=== PATIENT | male | born 1965 | race Caucasian/White ===

== ENCOUNTER 2023-10-14 08:00 | Outpatient (CLI) | payer MEDICAID ==
--- NOTE | 2023-10-14 17:44 | XRAY Report ---
PROCEDURE: Shoulder 3 View LT INDICATIONS: LEFT SHOULDER PAIN TECHNIQUE: 3 views of the shoulder were acquired. COMPARISON: None. FINDINGS: There is no evidence for acute fracture or dislocation involving the patient's left shoulder. There i s severe glenohumeral joint degenerative change and mild AC joint degenerative change. Adjacent soft tissues appear within normal limits. IMPRESSION: 1. No evidence for acute osseous abnormality involving the left shoulder. 2. Severe glenohumeral joint degenerative change. 3. Mild AC joint degenerative change. Reviewed by: Connor Dahl MD on 10/14/2023 5:43 PM PST Approved by: Connor Dahl MD on 10/14/2023 5:43 PM PST Station ID: [id number]
== END 2023-10-14 23:59 | disposition home or self-care (01) ==
LOC: DI.WOS 08:00
PROVIDERS: ATTEND Physician Assistant Surgical
DX: M19.012 Primary osteoarthritis, left shoulder (principal)

== ENCOUNTER 2023-11-05 14:45 | Outpatient (CLI) | payer MEDICAID ==
[2023-11-05 18:11] LABS: ALBUMIN 4.6 g/dL (3.2-5.5); ALBUMIN/GLOBULIN RATIO 1.8 (1.0-2.2); BILIRUBIN,TOTAL 0.4 mg/dL (0.2-1.0); CALCIUM 9.7 mg/dL (8.5-10.3); CREATININE 0.7 mg/dL (0.6-1.3); POTASSIUM 4.1 mmol/L (3.5-4.5); TOTAL PROTEIN 7.1 g/dL (6.4-8.9)
== END 2023-11-05 15:00 | disposition home or self-care (01) ==
LOC: LAB.N 14:45
PROVIDERS: ATTEND Family Medicine
DX: B35.1 Tinea unguium (principal)
CPT/HCPCS: 36415; 80053

== ENCOUNTER 2023-11-26 15:22 | Outpatient (CLI) | payer MEDICAID ==
--- NOTE | 2023-11-26 16:28 | Sleep Patient Instructions ---
Sleep Center Visit Summary - Patient Visit Information Reason for Visit: Initial consult for evaluation of sleep disordered breathing and other sleep issues. - Patient Instructions Instructions Attached: Sleep Study Additional Instructions: You will be completing a sleep study, either an in-lab polysomnography (PSG) or home sleep study (HST). You will follow-up in the sleep care office after the sleep study is completed to hear the results and talk about therapy, if needed. You will be called by our office staff to schedule this appointment, but you may contact us with any questions. - Clinic Information Contact: [facility] [address] [place] [address] [email or web address] T: [phone]
--- NOTE | 2023-11-26 16:31 | SLEEP CARE CONSULTATION ---
Information from patient questionnaire entered by Tali Ferreira. I have reviewed and concur with the information entered by Tali Ferreira. This document represents the service I personally performed and the decisions made by me, Chastity Birch ARNP. History of Present Illness Service Date and Time: 11/26/2023 1522 Reason for Visit: New patient Accompanied by: Lisa liao Chief Complaint: reports: Insomnia, Unrefreshed sleep, Excessive daytime sleepiness, Fatigue, Frequent awakenings at night Date of Onset: MOST OF MY LIFE Usual bedtime: 10PM Time it takes to fall asleep: 1-3 hours Snores at night: Yes (told he has snores a little) Observed to quit breathing while asleep: No Sleeps alone due to snoring: No Number of times waking at night: OFTEN, varies 1-4 Reasons for waking at night: reports: Bathroom. denies: Choking, Snoring, Gasping for air Toss, Turn, or Twitch while sleeping: Yes Recalls having dreams: Yes (sometimes) Usually gets out of bed at: 7-8AM Feels refreshed in the morning: No Morning headache: No Sleepy or fatigued during the day: Yes Ever fallen asleep while driving: No Takes day naps: Yes (3-4 days a week; time varies; sometimes he is not sleeping, just resting) Dreams during day naps: Yes Prior sleep studies: No Additional HPI information: I had the pleasure of seeing PHYLLIS ELIZONDO today regarding the possibility of him having a sleep disorder. His current complaints are excessive daytime sleepiness, fatigue, frequent night awakenings, insomnia and unrefreshed sleep. He feels he has issues with getting to sleep. He can take 1-3 hours, sometimes more. He says his mind is very active and he "can't calm down". Once he falls asleep he usually stays asleep but the time varies. He states if he does wake up in the middle of night he has a hard time going back to sleep. He is working with his psychiatrist right now who has been addressing his insomnia issues. He does have short-term memory issues, attention deficit as well as anxiety and depressive issues. 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 Patient is Single and lives in [place]. Have you smoked in the past 12 months: No Alcohol use: Yes Alcohol amount and frequency: 1-2 DRINKS 1-2 BEER DRINKS OCCASSIONALLY Caffeine use: No Caffeine amount and frequency: DECAFFINATED COFFEE Family History Family history of sleep disordered breathing: No Allergies and Home Medications Known drug allergies: Yes ( LISTED) Drug allergies reviewed: Yes Home medication list reviewed: Yes Allergy and home medication list: Home Medications Medication Instructions Recorded Confirmed Last Taken Type ARIPiprazole [Abilify] See Rx Instructions .ROUTE .COMPLEX 11/26/23 11/26/23 Unknown History Acetaminophen [Aphen] See Rx Instructions .ROUTE .COMPLEX 11/26/23 11/26/23 Unknown History Atomoxetine HCl [Strattera] See Rx Instructions .ROUTE .COMPLEX 11/26/23 11/26/23 Unknown History Ibuprofen [Motrin] See Rx Instructions .ROUTE .COMPLEX 11/26/23 11/26/23 Unknown History Sertraline HCl See Rx Instructions .ROUTE .COMPLEX 11/26/23 11/26/23 Unknown History Terbinafine [Lamisil] See Rx Instructions .ROUTE .COMPLEX 11/26/23 11/26/23 Unknown History traZODone [Desyrel] See Rx Instructions .ROUTE .COMPLEX 11/26/23 11/26/23 Unknown History Review of Systems Weight loss over past 5 years: 20 Neurological: reports: fainting or unconsciousness Psychiatric: reports: Attention Deficit Hyperactivity, anxiety, depression Ear/Nose/Throat: reports: nasal congestion, sinus problems. denies: tonsillectomy Endocrine: reports: sluggishness, too hot or cold Musculoskeletal: reports: back pain Immunologic: reports: allergies to food or environment Physical Exam Vital signs obtained and entered by: TALI Celis MA Blood Pressure: 93/63 (LEFT ARM) Cuff size: regular Heart Rate: 89 O2 Saturation: 100 Height: 6 ft Weight: 174 lb Body Mass Index: 23.6 BMI Classification: Normal Neck circumference: 14.5 Mouth and throat: narrow oropharynx Soft palate: long Hard palate: arched Uvula: normal Uvula visualization: 25% Mallampati Class III Tongue: enlarged in size with teeth barrera on lateral edges Tonsils: small Neck: normal w/o lymphadenopathy or thyromegaly Heart: regular rate and rhythm Lungs: clear bilaterally Impression and Plan 1. Suspected Obstructive Sleep Apnea-Hypopnea Syndrome, as suggested by a history of loud and irregular snoring, frequent awakening during the night, unrefreshed sleep, cognitive impairment, and excessive daytime sleepiness. Narrow oropharynx and obesity are common predisposing factors for obstructive sleep apnea-hypopnea syndrome. I recommend proceeding to polysomnography to confirm the diagnosis and to assess severity. If the patient has significant sleep disordered breathing, a manual CPAP titration study will also be performed to find the optimal treatment pressure. I informed the patient of what the sleep studies involve and after some discussion, obtained agreement to proceed. The pathophysiology of obstructive sleep apnea-hypopnea syndrome was discussed with the patient and health risks of cardiovascular and cerebrovascular disease if not treated. Risks of drowsy driving discussed in detail and patient advised to avoid long distance driving and to pullman car clerk at the first sign of drowsiness. Patient agreed to plan. * Schedule polysomnography. * Avoid long distance driving or driving when feeling sleepy. * Avoid alcohol, sedative and muscle relaxant around bedtime. * Review instructions provided by trained office staff on how to prepare for the sleep study. * Return for follow-up after sleep study completed. Visit Type: In Office Time Spent with Patient (minutes): 36 Provider Statement: I spent 100% of the Face to Face Visit with the patient with greater than 50% spent counseling the patient and coordination of care.
[2023-11-27 16:18] VITALS: BP 93/63; O2SAT 100
== END 2023-11-26 15:23 | disposition home or self-care (01) ==
LOC: SC 15:22
PROVIDERS: ATTEND Nurse Practitioner Family
DX: G47.10 Hypersomnia, unspecified (principal); R53.83 Other fatigue; G47.8 Other sleep disorders; R06.83 Snoring; R41.89 Other symptoms and signs involving cognitive functions and awareness; F32.A Depression, unspecified
CPT/HCPCS: 99203; 99212

== ENCOUNTER 2023-11-27 08:00 | Outpatient (CLI) | payer MEDICAID ==
--- NOTE | 2023-11-27 15:32 | XRAY Report ---
PROCEDURE: Hand 3 View RT INDICATIONS: RIGHT HAND CYST TECHNIQUE: 3 views of the hand(s) acquired. COMPARISON: None. FINDINGS: Bones: No fractures or dislocations. No suspicious bony lesions. Soft tissues: No suspicious soft tissue calcifications or masses. A subtle soft tissue radiopacity is visualized in the area of interest. IMPRESSION: No acute bony abnormality. Subtle soft tissue abnormality where indicated. If further characterization is warranted, ultrasound or MRI could be used. Reviewed by: Tonie Carlos MD on 11/27/2023 3:30 PM PST Approved by: Tonie Carlos MD on 11/27/2023 3:30 PM PST Station ID: [id number]
== END 2023-11-27 23:59 | disposition home or self-care (01) ==
LOC: DI.WOS 08:00
PROVIDERS: ATTEND Orthopaedic Surgery
DX: L72.3 Sebaceous cyst (principal)

== ENCOUNTER 2023-12-07 19:37 | Outpatient (CLI) | payer MEDICAID | END 2023-12-07 19:38 | disposition home or self-care (01) | LOC: SC 19:37 | PROVIDERS: ATTEND Nurse Practitioner Family | DX: G47.33 Obstructive sleep apnea (adult) (pediatric) (principal) | CPT/HCPCS: 95810 ==

== ENCOUNTER 2023-12-17 09:35 | Outpatient (CLI) | payer MEDICAID ==
--- NOTE | 2023-12-17 10:01 | Sleep Patient Instructions ---
Sleep Center Visit Summary - Patient Visit Information Reason for Visit: Sleep study follow-up - Patient Instructions Instructions Attached: CPAP Additional Instructions: You will be completing a titration sleep study in our sleep lab where you will be sleeping with the CPAP machine on and we will be adjusting your pressures to find your optimal pressure settings. Once we have your results back, we will call you and schedule a follow up to go over the results. You will be called by our office staff to schedule your follow up, but you may contact us with any questions or issue as needed. - Clinic Information Contact: [facility] [address] [place] [address] [email or web address] T: [phone]
--- NOTE | 2023-12-17 10:07 | SLEEP CARE CONSULTATION ---
Information from patient questionnaire entered by Tali Ferreira. I have reviewed and concur with the information entered by Tali Ferreira. This document represents the service I personally performed and the decisions made by , Chastity Birch ARNP. History of Present Illness Service Date and Time: 12/17/2023 0935 Accompanied by: Lisa liang Initial [place] Sleepiness Scale score: 9 (11/26/23) Current [place] Sleepiness Scale score: 10 (12/17/23) Additional HPI information: PHYLLIS ELIZONDO returns for follow up and results of the recently performed polysomnography. The sleep study showed severe obstructive sleep apnea with an average AHI of 50.7 and ev oxygen saturation of 86%. I explained the pathophysiology behind obstructive sleep apnea. We then spent quite a bit of time discussing different treatment options. For mild obstructive sleep apnea, surgery and oral appliance are alternatives to nasal CPAP therapy but in moderate or severe cases, nasal CPAP is the most effective and reliable treatment. After some discussion, the patient opted to go with the nasal CPAP therapy. A manual titration study will be ordered if unable to find optimal pressure with office adjustments. Patient counseled not drink alcohol less than 4 hours before bedtime as it can increase snoring and apnea. Patient was cautioned about risks of drowsy driving until sleepiness symptoms resolve. Patient denies drowsy driving. Sleep Study - Results Type of Sleep Study: Polysomnography (COMPLETED 12/07/23) Prior sleep studies: No Polysomnography/Home Sleep Study results: IMPRESSION: The quality of the study is good. The patient had reduced sleep efficiency due to a prolonged awakening in the second half of the night. The sleep architecture was abnormal for sleep fragmentation and lack of REM and slow wave sleep (N3). Respiratory monitoring showed severe obstructive sleep apnea-hypopnea (AHI = 50.7) associated with frequent arousals, oxyhemoglobin desaturation and mild hypoxia (ev oxygen saturation of 86%). The patient only slept supine during this study (supine AHI = 50.7; non- supine = 0.00). Snore was moderate = in intensity. There was no significant periodic leg movement of sleep. Cardiac rhythm was normal sinus rhythm without significant arrhythmia. No abnormal behavior (parasomnia) observed during the night. Allergies and Home Medications Known drug allergies: Yes (as listed) Drug allergies reviewed: Yes Home medication list reviewed: Yes (Meloxicam 15 mg tab for shoulder pain) Allergy and home medication list: Allergies codeine Allergy (Verified 12/16/23 13:09) iodine Allergy (Verified 12/16/23 13:09) oxycodone Allergy (Verified 12/16/23 13:09) shellfish derived Allergy (Verified 12/16/23 13:09) Review of Systems Review of systems same as previous: Yes (NO CHANGE) Physical Exam Vital signs obtained and entered by: TALI Celis MA Blood Pressure: 101/68 (LEFT ARM) Cuff size: regular Heart Rate: 86 O2 Saturation: 100 Height: 6 ft Weight: 162 lb 9.6 oz Weight change since last visit: 12 lb loss Body Mass Index: 22.0 BMI Classification: Normal Impression and Plan 1. Obstructive Sleep Apnea-Hypopnea Syndrome, severe, with lowest oxygen saturation of 86%. Obviously this is the cause of the patients symptoms of unrefreshed sleep, and excessive daytime sleepiness. Positive pressure therapy could benefit anxiety, depression, mood disorder and attention deficit. As mentioned above, the patient will be started on nasal autoCPAP therapy. A manual titration study will be completed to find optimal treatment pressure with office adjustments. Compliance guidelines also reviewed. Once we have authorization, we will move forward with a titration study and then see him in follow-up to set him up with a PAP device. He voiced understanding and agreement with this plan of care. 2. Hypoxemia, mild, with a ev oxygen saturation of 86% and 1.4 minutes spent under 90%. The baseline oxygen saturation was normal with an average oxygen saturation of 94%. * Titration study. * Avoid alcohol consumption near bedtime. * Avoid supine sleep until using CPAP. * Return after after titration study. Plan: Titration study Visit Type: In Office Time Spent with Patient (minutes): 24 Provider Statement: I spent 100% of the Face to Face Visit with the patient with greater than 50% spent counseling the patient and coordination of care.
[2023-12-17 10:14] VITALS: BP 101/68; O2SAT 100
== END 2023-12-17 09:36 | disposition home or self-care (01) ==
LOC: SC 09:35
PROVIDERS: ATTEND Nurse Practitioner Family
DX: G47.33 Obstructive sleep apnea (adult) (pediatric) (principal); R09.02 Hypoxemia
CPT/HCPCS: 99212; 99213

== ENCOUNTER 2024-01-28 19:49 | Outpatient (CLI) | payer MEDICAID | END 2024-01-28 19:50 | disposition home or self-care (01) | LOC: SC 19:49 | PROVIDERS: ATTEND Nurse Practitioner Family | DX: G47.33 Obstructive sleep apnea (adult) (pediatric) (principal) | CPT/HCPCS: 95811 ==

== ENCOUNTER 2024-02-25 09:29 | Outpatient (CLI) | payer MEDICAID ==
--- NOTE | 2024-02-25 10:09 | Sleep Patient Instructions ---
Sleep Center Visit Summary - Patient Visit Information Reason for Visit: Titration study follow-up - Patient Instructions Instructions Attached: CPAP Additional Instructions: You are being started on CPAP therapy with pressure setting at 5-10 cmH2O. You will need to call the sleep care office to set up your follow up once you have your CPAP machine to check compliance and response to therapy at that time. You may call the office with any concerns about pressure feeling too low or too much for adjustment, if needed. You should contact DME supplier for any questions or concerns about mask or equipment. Please call office to schedule a follow up appointment in the sleep care office one month after obtaining new device. - Clinic Information Contact: [facility] [address] [place] [address] [email or web address] T: [phone]
--- NOTE | 2024-02-25 10:15 | SLEEP CARE CONSULTATION ---
Information from patient questionnaire entered by Tali Ferreira. I have reviewed and concur with the information entered by Tali Ferreira. This document represents the service I personally performed and the decisions made by , Chastity Birch ARNP. History of Present Illness Service Date and Time: 02/25/2024 0929 Accompanied by: Roxanne Initial [place] Sleepiness Scale score: 9 (11/26/23) Current [place] Sleepiness Scale score: 8 Additional HPI information: PHYLLIS ELIZONDO returns for follow up of the sleep study with Lisa ([id number]) with a manual CPAP titration study performed on 01/28/2024. Pre vious study done on 12/07/2023 showed severe obstructive sleep apnea with AHI 50.7. The patient was informed of the following polysomnography findings: CPAP was initiated at 6 cmH2O and titrated up to CPAP at 14 cmH2O. CPAP at 10 cmH2O appeared to be optimal (AHI of 1.8 per hour on the pressure). There was supine REM sleep on the pressure. Oxygen saturation was normal throughout the night. Higher CPAP settings were associated with more residual respiratory events. The patient appeared to have tolerated positive airway pressure therapy fairly well. I explained how CPAP machine works and what to expect when using the machine. Using CPAP every night in order to get used to it was emphasized. Patient advised to put CPAP mask on before getting into bed so as not to fall asleep without CPAP. To assist acclimation to CPAP use, it could also be used for a short time during day while reading or watching TV. The patient was instructed to call the CPAP supplier to discuss any mechanical problem that may occur. If the mask given is uncomfortable or is difficult to keep on through the night even with adjustment, contact the CPAP supplier as many will replace with another mask style if notified before 30 days. If snoring or perceives is not getting enough air or too much air from the machine, notify this office. Patient was cautioned about risks of drowsy driving until sleepiness symptoms resolve. Sleep Study - Results Type of Sleep Study: Polysomnography (COMPLETED 12/07/23 TITRATION 01/28/24) Prior sleep studies: No Polysomnography/Home Sleep Study results: IMPRESSION: The quality of the study is good. CPAP was initiated at 6 cmH2O and titrated up to CPAP at 14 cmH2O. CPAP at 10 cmH2O appeared to be optimal (AHI of 1.8 per hour on the pressure). There was supine REM sleep on the pressure. Oxygen saturation was normal throughout the night. Higher CPAP settings were associated with more residual respiratory events. The patient appeared to have tolerated positive airway pressure therapy fairly well. The patients sleep efficiency was reduced due to two prolonged awakenings during the night. The sleep architecture was abnormal for sleep fragmentation and reduced amount of time spent in REM and slow wave sleep (N3). There was no significant periodic leg movement of sleep. Cardiac rhythm was normal sinus rhythm without significant arrhythmia. No abnormal behavior (parasomnia) observed during the night. Allergies and Home Medications Known drug allergies: Yes (as listed) Drug allergies reviewed: Yes Home medication list reviewed: Yes (Atomoxetine now 80 mg, trazadone now 75 mg; stopped terbinafine) Allergy and home medication list: Allergies codeine Allergy (Verified 02/23/24 09:02) iodine Allergy (Verified 02/23/24 09:02) oxycodone Allergy (Verified 02/23/24 09:02) shellfish derived Allergy (Verified 02/23/24 09:02) Review of Systems Review of systems same as previous: Yes (no changes) Physical Exam Vital signs obtained and entered by: CHASTITY KAN-Lalita Blood Pressure: 88/58 Cuff size: regular (left arm) Heart Rate: 69 O2 Saturation: 100 Height: 6 ft Weight: 160 lb Body Mass Index: 21.7 BMI Classification: Normal Impression and Plan 1. Obstructive Sleep Apnea-Hypopnea Syndrome, severe. Patient returns to office after titration study completed January 28, 2024. He has optimal pressure appeared to be about 10 cm H2O, pressure range between 5-10 cm H2O was also recommended. Patient advised that positive pressure therapy could benefit anxiety, depression, mood disorder and attention deficit. The patient will be started on nasal autoCPAP therapy with pressure set at 5-10 cmH2O. Compliance guidelines also reviewed. A copy of compliance guidelines will be given for reference at check out. * Nasal auto CPAP therapy, pressure at 5-10 cm H2O. * Attempt to lose weight. * Avoid alcohol consumption near bedtime. * Avoid supine sleep until using CPAP. * The patient is again cautioned about driving until sleepiness completely resolves. * Return one month after CPAP obtained. I will assess response to therapy and compliance at that time. Prescriptions: Auto CPAP Plan: CPAP setup and compliance followup Visit Type: In Office Time Spent with Patient (minutes): 28 Provider Statement: I spent 100% of the Face to Face Visit with the patient with greater than 50% spent counseling the patient and coordination of care.
[2024-02-25 10:17] VITALS: BP 88/58; O2SAT 100
== END 2024-02-25 09:30 | disposition home or self-care (01) ==
LOC: SC 09:29
PROVIDERS: ATTEND Nurse Practitioner Family
DX: G47.33 Obstructive sleep apnea (adult) (pediatric) (principal)
CPT/HCPCS: 99212; 99213

== ENCOUNTER 2024-03-12 14:10 | Outpatient (CLI) | payer MEDICAID ==
--- NOTE | 2024-03-12 16:21 | XRAY Report ---
PROCEDURE: Lumbar Spine 2-3V INDICATIONS: LOW BACK PAIN TECHNIQUE: 2 views of the lumbar spine were acquired. COMPARISON: None. FINDINGS: Bones: 5 [id number]-mdx-urculib vertebrae are present. Mild levocurvature of the lumbar spine. Straightenin g of the normal lumbar lordosis. There are multilevel degenerative changes of the lumbar spine with f acet arthropathy and disc height loss with degenerative endplate changes and marginal spurring. This is most pronounced at L5-S1. No vertebral body compression fractures. No suspicious bony lesions. Soft tissues: Overlying bowel gas pattern is normal. No suspicious soft tissue calcifications. Athe rosclerotic vascular calcifications. IMPRESSION: Moderate multilevel degenerative changes of the lumbar spine. Reviewed by: Juan Gautam MD on 03/12/2024 4:20 PM PDT Approved by: Juan Gautam MD on 03/12/2024 4:20 PM PDT Station ID: [id number]
== END 2024-03-12 14:11 | disposition home or self-care (01) ==
LOC: DI 14:10
PROVIDERS: ATTEND Nurse Practitioner
DX: M47.816 Spondylosis without myelopathy or radiculopathy, lumbar region (principal); M47.817 Spondylosis without myelopathy or radiculopathy, lumbosacral region

== ENCOUNTER 2024-05-05 13:45 | Outpatient (CLI) | payer MEDICAID ==
--- NOTE | 2024-05-05 14:49 | Sleep Patient Instructions ---
Sleep Center Visit Summary - Patient Visit Information Reason for Visit: First compliance follow-up - Patient Instructions Additional Instructions: You were here for follow up of CPAP therapy. You will be continued on CPAP therapy with pressure at 10-11 cmH2O. Please let us know if the pressure change is uncomfortable and we can make further adjustments of the pressure. You should follow up with sleep care in 1-2 months. You may contact us sooner for any questions or concerns. - Clinic Information Contact: [facility] [address] [place] [address] [email or web address] T: [phone]
--- NOTE | 2024-05-05 14:56 | SLEEP CARE CONSULTATION ---
Information from patient questionnaire entered by Tali Fererira. I have reviewed and concur with the information entered by Tali Ferreira. This document represents the service I personally performed and the decisions made by me, Chastity Birch ARNP. History of Present Illness Service Date and Time: 05/05/2024 1345 Previous diagnosis: Severe, Obstructive Sleep Apnea-Hypopnea Syndrome AHI: 50.7 (on 12/07/2023) Reason for follow up: first compliance Accompanied by: mary Gonzalez Equipment type: CPAP (RESMED Airsense 11, s/u 02/2024) Equipment obtained from: Other ([facility]; getting supplies) Mask style: Full face Mask brand: [employer] (Toni Full) Backup mask available: No (will keep old mask when replaced) Last cushion change: over a month Prior sleep studies: No Type of Sleep Study: Polysomnography (COMPLETED 12/07/23 TITRATION 01/28/24) HPI additional information: PHYLLIS ELIZONDO was diagnosed to have severe, AHI 50.7, obstructive sleep apnea- hypopnea syndrome and returned accompanied by his sister in law, Lisa, today for CPAP therapy first compliance follow-up. Sleep Study - Results Type of Sleep Study: Polysomnography (COMPLETED 12/07/23 TITRATION 01/28/24) Prior sleep studies: No CPAP Compliance Data - Data Reviewed with Patient Average duration of nightly device use: 7 HRS 34 MINS Compliance rate %: 70 (03/28/24-04/26/24; 22/30 days used) Current pressure setting (cmH2O): 5-10 (avg 9.7, max 9.9) Average residual AHI: 19.6 (unknown 2.5) Central apnea: 5.8 Obstructive apnea: 7.2 Hypopnea: 4.1 Average large leak: 4 L/min Subjective Missed days of use due to: reports: mask issues Patient concerns: reports: other (mask fit, want to try a bigger size). denies: aerophagia, mask discomfort, air blowing in eyes, mask leak noise, condensation in mask/hose, nasal congestion, dry mouth, nose, throat, epistaxis Observed to snore while using device: No Current pressure setting perceived as: comfortable On therapy, patient: denies: drowsiness while driving Initial [place] Sleepiness Scale score: 9 (11/26/23) Current Cam[place] Sleepiness Scale score: 7 (05/05/24) Allergies and Home Medications Known drug allergies: Yes (as listed) Drug allergies reviewed: Yes Home medication list reviewed: Yes (no changes) Allergy and home medication list: Allergies codeine Allergy (Verified 05/03/24 11:23) iodine Allergy (Verified 05/03/24 11:23) oxycodone Allergy (Verified 05/03/24 11:23) shellfish derived Allergy (Verified 05/03/24 11:23) Review of Systems Review of systems same as previous: Yes (NO CHANGE) Physical Exam Vital signs obtained and entered by: TALI Celis MA Blood Pressure: 101/70 (RIGHT ARM) Cuff size: regular Heart Rate: 76 O2 Saturation: 99 Height: 6 ft Weight: 157 lb Body Mass Index: 21.2 BMI Classification: Normal Impression and Plan 1. Obstructive Sleep Apnea-Hypopnea Syndrome, severe, with good treatment compliance and fair apnea control with elevated residual AHI. On CPAP therapy, the patient is still trying to see if it is improving his sleep. His Camino improved from 08/06 to 06/09. He changed his mask and he likes the [employer] Toni full face mask better but he gets some mask leaking when on his side. He does have some facial hair and I advised him to trim a little encourage a better seal of the mask. He can also try a CPAP pillow to reduce dislodgment of the mask. The patients pressure will be changed to autoCPAP 10-11 cmH20 for elevation of residual AHI. Patient advised to contact me if pressure change is uncomfortable so that it can be adjusted. Goals for apnea control discussed. Patient's apnea severity and rationale for treatment to reduce apnea, improve sleep quality and reduce cardiovascular and cerebrovascular events was reviewed. I also reviewed the benefit of consistent device use of CPAP for depression/anxiety, mood diso rder and attention deficit. * Change auto CPAP pressure to 10-11 cmH2O * Notify me if snoring with mask or feeling that the pressure is too much or too little * Attempt to lose weight * Call this office if any problems using CPAP * Return for follow up in 1-2 months, or sooner if concerns arise Counseling Topics: Spare mask Follow up with Sleep Care in: 1-2 months Visit Type: In Office Time Spent with Patient (minutes): 34 Provider Statement: I spent 100% of the Face to Face Visit with the patient with greater than 50% spent counseling the patient and coordination of care.
[2024-05-05 14:57] VITALS: BP 101/70; O2SAT 99
== END 2024-05-05 13:46 | disposition home or self-care (01) ==
LOC: SC 13:45
PROVIDERS: ATTEND Nurse Practitioner Family
DX: G47.33 Obstructive sleep apnea (adult) (pediatric) (principal)
CPT/HCPCS: 99212; 99214

== ENCOUNTER 2024-06-11 18:10 | Outpatient (CLI) | payer MEDICAID ==
--- NOTE | 2024-06-12 14:15 | XRAY Report ---
PROCEDURE: Hand 1-2V RT INDICATIONS: DIGITAL MUCOUS OF CYST OF RIGHT HAND TECHNIQUE: 3 views of the hand(s) acquired. COMPARISON: None. FINDINGS: Bones: No fractures or dislocations. No suspicious bony lesions. Soft tissues: No suspicious soft tissue calcifications. Questionable increased attenuation overlying the soft tissues adjacent to the fifth metacarpal head. IMPRESSION: Nonspecific increased attenuation overlying the fifth metacarpal head possibly within the soft tissue s. Underlying mass cannot be excluded. X-ray poorly characterize and identifies soft tissue masses an d if concern persists, MRI is recommended. Reviewed by: Debra Roth MD on 06/12/2024 2:14 PM PDT Approved by: Debra Roth MD on 06/12/2024 2:14 PM PDT Station ID: [id number]
== END 2024-06-11 18:11 | disposition home or self-care (01) ==
LOC: DI 18:10
PROVIDERS: ATTEND Physician Assistant
DX: M67.441 Ganglion, right hand (principal)

== ENCOUNTER 2024-06-24 11:09 | Outpatient (CLI) | payer MEDICAID ==
--- NOTE | 2024-06-24 12:15 | Sleep Patient Instructions ---
Sleep Center Visit Summary - Patient Visit Information Reason for Visit: 6-week follow-up for Pap therapy - Patient Instructions Additional Instructions: You were here for follow up of CPAP therapy. You will be continued on CPAP therapy with pressure at 10-11 cmH2O. I have written an order to have the machine service to check on issue with air blowing too hard. You should follow up with sleep care in 1-2 months. You may contact us sooner for any questions or concerns. - Clinic Information Contact: [facility] [address] [place] [address] [email or web address] T: [phone]
--- NOTE | 2024-06-24 12:21 | SLEEP CARE CONSULTATION ---
Information from patient questionnaire entered by Tali Ferreira. I have reviewed and concur with the information entered by Tali Ferreira. This document represents the service I personally performed and the decisions made by , Chastity Birch ARNP. History of Present Illness Service Date and Time: 06/24/2024 1109 Previous diagnosis: Severe, Obstructive Sleep Apnea-Hypopnea Syndrome AHI: 50.7 (on 12/07/2023) Reason for follow up: other (6 WEEK F/U) Accompanied by: mary Gonzalez Equipment type: CPAP (RESMED Airsense 11, s/u 02/2024) Equipment obtained from: Other ([facility]; getting supplies) Mask style: Full face Mask brand: [employer] (Toni Full) Backup mask available: No Last cushion change: 3 months Prior sleep studies: No Type of Sleep Study: Polysomnography (COMPLETED 12/07/23 TITRATION 01/28/24) HPI additional information: PHYLLIS ELIZONDO was diagnosed to have severe, AHI 50.7, obstructive sleep apnea- hypopnea syndrome and returned today with sister in law Gonzalez for CPAP therapy six week follow-up. Sleep Study - Results Type of Sleep Study: Polysomnography (COMPLETED 12/07/23 TITRATION 01/28/24) Prior sleep studies: No CPAP Compliance Data - Data Reviewed with Patient Average duration of nightly device use: 7 HRS 54 MINS Compliance rate %: 82 (05/09/24-06/21/24; 37/44 days used) Current pressure setting (cmH2O): 10-11 Average residual AHI: 17 (unknown 1.2) Central apnea: 4.6 Obstructive apnea: 7.1 Hypopnea: 4 Average large leak: 5.3 L/min Subjective Missed days of use due to: reports: mask issues, other (machine blowing "hard" and he was unable to use) Patient concerns: reports: aerophagia, other (MACHINE BLOWING AIR/NOT USABLE). denies: mask discomfort, air blowing in eyes, mask leak noise, condensation in mask/hose, nasal congestion, dry mouth, nose, throat, epistaxis Observed to snore while using device: No Current pressure setting perceived as: too high On therapy, patient: reports: other (not feeling improvement of sleep or restfulness--has to "rest" after using CPAP in the morning) Initial [place] Sleepiness Scale score: 9 (11/26/23) Current [place] Sleepiness Scale score: 4 (06/24/24) Allergies and Home Medications Known drug allergies: Yes (as listed) Drug allergies reviewed: Yes Home medication list reviewed: Yes (Trazodone increased to 100 mg) Allergy and home medication list: Allergies codeine Allergy (Verified 06/24/24 11:20) iodine Allergy (Verified 06/24/24 11:20) oxycodone Allergy (Verified 06/24/24 11:20) shellfish derived Allergy (Verified 06/24/24 11:20) Review of Systems Review of systems same as previous: No (INFLAMED RIGHT PINKIE KNUCKLE, ULCER UPPER RIGHT GUM) Physical Exam Vital signs obtained and entered by: TALI Celis MA Blood Pressure: 128/78 (LEFT ARM) Cuff size: regular Heart Rate: 71 O2 Saturation: 100 Height: 6 ft Weight: 161 lb 9.6 oz Body Mass Index: 21.9 BMI Classification: Normal Impression and Plan 1. Obstructive Sleep Apnea-Hypopnea Syndrome, severe, with good treatment compliance and good apnea control. He does not feel like his sleep is better or he is more rested overall. He says that his machine is having an issue where the pressure comes on so high when he puts the mask on that he says the machine is "unusable". He has not been able to use the machine for the last 4-5 nights. I had him plug the machine in. The pressure started at 4 cmH2O with ramping and he said it did not feel so high like he felt at home. He is using the ramp feature. I am unsure what the problem may be but think we should have the machine serviced to check for any problems that could cause the pressure to feel so very high, as he describes. His sister in law says he tells her of burping in the morning and excess gas. He may be experiencing aerophagia. He does not state how problematic it is. He does have improvement of his sleep apnea with current pressure setting although it is mildly ineffective. He does not feel he could tolerate more pressure. He also has ordered a larger cushion size of mask thinking it would be more comfortable. I checked the mask fit and it was fine with the medium cushion. He says he has not changed the cushion out since he started using his CPAP and his average large leak is high. I advised him to change out the mask cushion to reduce mask leaks. He voiced understanding and agreement. Patient's apnea severity and rationale for treatment to reduce apnea, improve sleep quality and reduce cardiovascular and cerebrovascular events was reviewed. I also reviewed the benefit of consistent device use of CPAP for depression/anxiety, mood disorder, attention deficit. * Continue auto CPAP pressure at 10-11 cmH2O * Service Machine * Notify me if snoring with mask or feeling that the pressure is too much or too little * Attempt to lose weight * Call this office if any problems using CPAP * Return for follow up in 1-2 months, or sooner if concerns arise Prescriptions: Other (service machine) Follow up with Sleep Care in: 1-2 months Visit Type: In Office Time Spent with Patient (minutes): 29 Provider Statement: I spent 100% of the Face to Face Visit with the patient with greater than 50% spent counseling the patient and coordination of care.
[2024-06-24 12:28] VITALS: BP 128/78; O2SAT 100
== END 2024-06-24 11:10 | disposition home or self-care (01) ==
LOC: SC 11:09
PROVIDERS: ATTEND Nurse Practitioner Family
DX: G47.33 Obstructive sleep apnea (adult) (pediatric) (principal)
CPT/HCPCS: 99212; 99213

== ENCOUNTER 2024-08-06 14:51 | Outpatient (CLI) | payer MEDICAID ==
--- NOTE | 2024-08-06 15:33 | Sleep Patient Instructions ---
Sleep Center Visit Summary - Patient Visit Information Reason for Visit: 1 month follow-up - Patient Instructions Additional Instructions: You were here for follow up of CPAP therapy. You will be continued on CPAP therapy with pressure at 10-11 cmH2O. Try the new nasal mask, Mirage FX Standard. You should follow up with sleep care in 1-2 months. You may contact us sooner for any questions or concerns. - Clinic Information Contact: [facility] [address] [place] [address] [email or web address] T: [phone]
--- NOTE | 2024-08-06 15:40 | SLEEP CARE CONSULTATION ---
Information from patient questionnaire entered by Annalisa Ferreira. I have reviewed and concur with the information entered by Annalisa Ferreira. This document represents the service I personally performed and the decisions made by , Chastity Birch ARNP. History of Present Illness Service Date and Time: 08/06/2024 1451 Previous diagnosis: Severe, Obstructive Sleep Apnea-Hypopnea Syndrome AHI: 50.7 (on 12/07/2023) Reason for follow up: other (ONE MONTH F/U) Accompanied by: Brother Equipment type: CPAP (RESMED Airsense 11, s/u 02/2024) Equipment obtained from: Other ([facility]; getting supplies) Mask style: Full face Backup mask available: Yes Prior sleep studies: No Type of Sleep Study: Polysomnography (COMPLETED 12/07/23 TITRATION 01/28/24) HPI additional information: PHYLLIS ELIZONDO was diagnosed to have severe, AHI 50.7, obstructive sleep apnea- hypopnea syndrome and returned today with brother for CPAP therapy one month follow-up. He has been diagnosed with Alzheimer's dementia and his brother helps with understanding during appointment. Sleep Study - Results Type of Sleep Study: Polysomnography (COMPLETED 12/07/23 TITRATION 01/28/24) Prior sleep studies: No CPAP Compliance Data - Data Reviewed with Patient Average duration of nightly device use: 7 HRS 4 MINS Compliance rate %: 77 (06/28/24-07/27/24) Current pressure setting (cmH2O): 10-11 Average residual AHI: 18.7 Central apnea: 4 Obstructive apnea: 7.7 Hypopnea: 3.6 Average large leak: 4.5 L/min Subjective Missed days of use due to: reports: mask issues Patient concerns: reports: mask leak noise, other (BLOATED, AIR LEAKING). denies: aerophagia, mask discomfort, air blowing in eyes, condensation in mask/hose, nasal congestion, dry mouth, nose, throat, epistaxis Observed to snore while using device: No Current pressure setting perceived as: too high On therapy, patient: reports: other (he does not drive; feels he sleeps better without machine) Initial [place] Sleepiness Scale score: 9 (11/26/23) Current [place] Sleepiness Scale score: 7 (08/06/24) Allergies and Home Medications Known drug allergies: Yes (as listed) Drug allergies reviewed: Yes Home medication list reviewed: Yes (no changes) Allergy and home medication list: Allergies codeine Allergy (Verified 08/06/24 14:53) iodine Allergy (Verified 08/06/24 14:53) oxycodone Allergy (Verified 08/06/24 14:53) shellfish derived Allergy (Verified 08/06/24 14:53) Review of Systems Review of systems same as previous: No (ALZHEIMERS) Physical Exam Vital signs obtained and entered by: ANNALISA Celis MA Blood Pressure: 102/57 (LEFT ARM) Cuff size: regular Heart Rate: 72 O2 Saturation: 99 Height: 6 ft Weight: 167 lb 9.6 oz Body Mass Index: 22.7 BMI Classification: Normal Impression and Plan 1. Obstructive Sleep Apnea-Hypopnea Syndrome, severe, with good treatment compliance and fair apnea control with elevated residual AHI. He feels like he sleep better without the CPAP because of the mask leaking and waking him up. His machine was checked over at his DME and then did not feel a service was needed. He stopped using it 10 days ago because the mask is still leaking when he is trying to sleep on his side. I explained that is is normal and that he does not need a new machine. I did fit him to a Mirage FX standard mask because thought a nasal mask would be more comfortable. He is going to try this at home and let me know if it will work. I will not adjust his pressure because he already feels it is too high. I will see him back in a month or so to recheck mask issues and AHI. Patient advised to contact me if pressure change is uncomfortable so that it can be adjusted. Goals for apnea control discussed. Patient's apnea severity and rationale for treatment to reduce apnea, improve sleep quality and reduce cardiovascular and cerebrovascular events was reviewed. I also reviewed the benefit of consistent device use of CPAP for depression/anxiety, mood disorder and attention deficit. * Continue auto CPAP pressure at 10-11 cmH2O * Try nasal mask * Notify me if snoring with mask or feeling that the pressure is too much or too little * Attempt to lose weight * Call this office if any problems using CPAP * Return for follow up in 1-2 months, or sooner if concerns arise Mask provided: Yes Follow up with Sleep Care in: 1-2 months Visit Type: In Office Time Spent with Patient (minutes): 35 Provider Statement: I spent 100% of the Face to Face Visit with the patient with greater than 50% spent counseling the patient and coordination of care.
[2024-08-06 15:44] VITALS: BP 102/57; O2SAT 99
== END 2024-08-06 14:52 | disposition home or self-care (01) ==
LOC: SC 14:51
PROVIDERS: ATTEND Nurse Practitioner Family
DX: G47.33 Obstructive sleep apnea (adult) (pediatric) (principal)
CPT/HCPCS: 99212; 99213